=== PATIENT | female | born 1975 | race Caucasian/White ===

== ENCOUNTER → 2017-04-12 | Outpatient (CLI) | payer BC | LOC: FIMAGING 11:49 | PROVIDERS: ATTEND Family Medicine | DX: Z12.31 Encounter for screening mammogram for malignant neoplasm of breast (principal); Z80.3 Family history of malignant neoplasm of breast | CPT/HCPCS: G0202 ==

== ENCOUNTER 2017-05-17 09:38 | Observation (INO) | payer BC, OTHER ==
[2017-05-17] MEDS ORDERED: ONDANSETRON 4 MG/2 ML VIAL IVP ONE (10:05)
[2017-05-17] MEDS ORDERED: NS 1,000 ML IV ONE (10:05)
[2017-05-17] MEDS ORDERED: ONDANSETRON 4 MG/2 ML VIAL ONE (10:05)
--- NOTE | 2017-05-17 10:08 | EDPHY ---
H & P Time Seen by Provider: 05/17/17 09:57 HPI/ROS: CHIEF COMPLAINT: Nausea, abdominal pain, chest pain HISTORY OF PRESENT ILLNESS: 42-year-old female presents to the emergency department feeling very nauseous and having epigastric abdominal pain and chest pressure. The patient states the pain began intermittently on new 's Radha, 5 days ago, and now has continued and now has become constant. She describes it as pressure in her chest that starts in her upper abdomen radiates up to the anterior aspect of her chest. She feels nauseous although no vomiting. She does not feel short of breath. She does state however the pain does feel like it takes her breath away. No diarrhea. No back pain. No family history of coronary artery disease specifically no history of myocardial infarction in 40s or 50s in family members. She has never had pain like this in the past. She does not know what makes it better or worse. She was trying to see if this was related to food and she cannot find a pattern or any triggers to make it worse. REVIEW OF SYSTEMS: Constitutional: No fever, no chills. Eyes: No double or blurry vision. ENT: No sore throat. Respiratory: As above. No cough. Cardiac: chest pain. Gastrointestinal: Epigastric abdominal pain, nausea. No vomiting or diarrhea Genitourinary: No dysuria. Musculoskeletal: No neck or back pain. Skin: No rashes. Neurological: No headache. Past Medical/Surgical History: Negative Social History: and lives in [place] Smoking Status: Never smoked Physical Exam: General Appearance: Alert, moderate distress. Afebrile. 95% on room air. Eyes: Pupils equal and round. Extraocular motions are all intact. ENT: Mouth: Mucous membranes slightly dry. Respiratory: No wheezing, rhonchi, or rales, lungs are clear to auscultation. Unable to reproduce pain with palpation to the anterior aspect of her chest or abdomen. Cardiovascular: Regular rate and rhythm. Gastrointestinal: Abdomen is soft and nontender, no masses, no rebound or guarding, bowel sounds normal. Neurological: Alert and oriented x 3, cranial nerves II through XII grossly intact Skin: Warm and dry, no rashes. Musculoskeletal: Nontender to palpate along the cervical, thoracic or lumbar spine. Neck is supple. Extremities: Full range of motion and no peripheral edema. Psychiatric: Patient is oriented X 3, there is no agitation. Constitutional: Initial Vital Signs Temperature (C) 37.2 C 05/17/17 09:41 Heart Rate 78 05/17/17 09:41 Respiratory Rate 16 05/17/17 09:41 Blood Pressure 127/83 H 05/17/17 09:41 O2 Sat (%) 95 05/17/17 09:41 O2 Delivery Mode Room Air Allergies/Adverse Reactions: Tetracyclines Allergy (Verified 05/17/17 13:41) spinal swelling Home Medications: Medication Instructions Recorded Albuterol [Proventil Inhaler HFA 1 - 2 puffs IH DAILY PRN 05/17/17 (*)] Herbals/Supplements -Info Only 1 ea PO DAILY 05/17/17 Ibuprofen [Motrin (*)] 200 mg PO DAILY PRN 05/17/17 Multivitamins [Multivitamin (*)] 1 each PO DAILY 05/17/17 Medical Decision Making - Diagnostics EKG Interpretation: EKG was reviewed by Dr. Yamileth Justice, see interpretation in trace master. Imaging Results: Imaging Impressions Abdomen Ultrasound 05/17/17 10:49 Impression: There is prominence of the common bile duct, measuring up to 8.5 mm , with no cholelithiasis or choledocholithiasis observed. Correlation with a bilirubin level is suggested, with consideration of an MRCP or an ERCP, if of further clinical concern. Findings were discussed with RAMIREZ NORMAN PA-C at 11:49, on 05/17/2017. Imaging: Discussed imaging studies w/ banquet server on call Radiologist ED Course/Re-evaluation: 42-year-old female presents to the emergency department with epigastric abdominal pain and chest pressure. Symptoms were intermittent starting for 5 days ago and now has become worse and now constant. Laboratory studies are within normal limits with the exception of elevation of her conjugated bili at 0.7 and elevation of her AST at 48. Gallbladder ultrasound reveals large common bile duct measuring 8.9 mm. She had an ultrasound in 2006 the common bile duct measuring 4.8 mm. Radiologist recommends obtaining MRCP or ERCP for possible retained stone. Patient will be admitted to the hospital with ongoing abdominal pain to Dr. Jayson House. MRCP has been ordered. MRCP reveals distended gallbladder with no evidence of choledochal stones. 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 Radiologist, Dr. Ward Davila, recommends MRI both without with contrast of the thoracic spine for further evaluation. This was explained to Dr. Jayson House. Patient has been admitted. Differential Diagnosis: Including but not limited to GERD, peptic ulcer disease, cholecystitis, cholelithiasis, choledocholithiasis, myocardial infarction, pulmonary embolism - Data Points Laboratory Results: Laboratory Results 05/17/17 10:03 05/17/17 10:03 05/17/17 05/17/17 05/17/17 10:03 10:03 10:03 WBC RBC Hgb Hct MCV MCH MCHC RDW Plt Count MPV Neut % (Auto) Lymph % (Auto) [place] % (Auto) Eos % (Auto) Baso % (Auto) Nucleat RBC Rel Count Absolute Neuts (auto) Absolute Lymphs (auto) Absolute Monos (auto) Absolute Eos (auto) Absolute Basos (auto) Absolute Nucleated RBC Immature Gran % Immature Gran # D-Dimer < 0.27 ug/mLFEU ug/mLFEU (0.00-0.50) Sodium 144 mEq/L mEq/L (134-144) Potassium 4.4 mEq/L mEq/L (3.5-5.2) Chloride 106 mEq/L mEq/L (97-110) Carbon Dioxide 25 mEq/l mEq/l (22-31) Anion Gap 13 mEq/L mEq/L (8-16) BUN 21 mg/dL mg/dL (7-23) Creatinine 0.9 mg/dL mg/dL (0.6-1.0) Estimated GFR > 60 Glucose 86 mg/dL mg/dL (70-100) Calcium 10.0 mg/dL mg/dL (8.5-10.4) Total Bilirubin Conjugated Bilirubin Unconjugated Bilirubin AST ALT Alkaline Phosphatase Troponin I < 0.012 ng/mL ng/mL (0.000-0.034) Total Protein Albumin Lipase Beta HCG, Qual NEGATIVE 05/17/17 05/17/17 10:03 10:00 WBC REJ RBC REJ Hgb REJ Hct REJ MCV REJ MCH REJ MCHC REJ RDW REJ Plt Count REJ MPV REJ Neut % (Auto) REJ Lymph % (Auto) REJ [place] % (Auto) REJ Eos % (Auto) REJ Baso % (Auto) REJ Nucleat RBC Rel Count REJ Absolute Neuts (auto) REJ Absolute Lymphs (auto) REJ Absolute Monos (auto) REJ Absolute Eos (auto) REJ Absolute Basos (auto) REJ Absolute Nucleated RBC REJ Immature Gran % REJ Immature Gran # REJ D-Dimer Sodium Potassium Chloride Carbon Dioxide Anion Gap BUN Creatinine Estimated GFR Glucose Calcium Total Bilirubin 1.3 mg/dL mg/dL (0.1-1.4) Conjugated Bilirubin 0.7 mg/dL H mg/dL (0.0-0.5) Unconjugated Bilirubin 0.6 mg/dL mg/dL (0.0-1.1) AST 48 IU/L H IU/L (14-46) ALT 18 IU/L IU/L (9-52) Alkaline Phosphatase 74 IU/L IU/L (38-126) Troponin I Total Protein 8.3 g/dL H g/dL (6.3-8.2) Albumin 4.9 g/dL g/dL (3.5-5.0) Lipase 211 IU/L IU/L (23-300) Beta HCG, Qual Medications Given: Discontinued Medications Sodium Chloride (Ns) 1,000 mls @ 0 mls/hr IV ONCE ONE PRN Reason: Wide Open Stop: 05/17/17 10:06 Last Admin: 05/17/17 10:13 Dose: 1,000 mls Ondansetron HCl (Zofran) 4 mg IVP EDNOW ONE Stop: 05/17/17 10:06 Last Admin: 05/17/17 10:10 Dose: 4 mg Departure - Departure Disposition: [facility] Acute Clinical Impression: Abdominal pain Qualifiers: Abdominal location: epigastric Qualified Code(s): R10.13 - Epigastric pain Chest pain Qualifiers: Chest pain type: unspecified Qualified Code(s): R07.9 - Chest pain, unspecified Condition: Good
--- NOTE | 2017-05-17 10:10 | CPEKG ---
Heart Rate: 46 RR Interval: 1304 QRSD Interval: 74 QT Interval: 424 QTC Interval: 371 QRS [place]: 73 T Wave [place]: 62 EKG Severity - ABNORMAL ECG - EKG Impression: NSR Electronically Signed By: Yamileth Justice 17-May-2017 15:21:19
[2017-05-17 13:27] LABS: PLATELET COUNT 236 10^3/uL (150-400)
--- NOTE | 2017-05-17 14:53 | GHP ---
[f rep st] HISTORY AND PHYSICAL DATE OF ADMISSION: 05/17/2017 CHIEF COMPLAINT: Abdominal pain. HISTORY OF PRESENT ILLNESS: This is a 42-year-old female with no significant past medical history. She has had 5 days of epigastric pain. She describes this as dull aching with some radiation to her back. Last night, it did become sharp. Food makes it worse. Nothing makes it better. She is not h aving any fevers or chills. No diarrhea. No previous history of gallbladder problems. No weight lo ss. She feels a little bit better now in the emergency department. She did have surgery on the abdo evans muscles and she has noticed a little bit of a bulge in the epigastric area which is new, but kory josue has not had any previous actual hernia surgery. REVIEW OF SYSTEMS: A 10-point review of systems was obtained and negative. PAST MEDICAL HISTORY: None. MEDICATIONS: None. SOCIAL HISTORY: No smoking. . FAMILY HISTORY: Reviewed and negative. PHYSICAL EXAMINATION: VITAL SIGNS: Afebrile, blood pressure is 115/75, heart rate is 69, oxygen sat uration 95% on room air. GENERAL: The patient is well-developed, no apparent distress. HEENT: Tamara cteric sclerae. Extraocular movements intact. Moist mucous membranes. NECK: Supple. No thyromega ly. LUNGS: Good effort. Clear to auscultation bilaterally. CARDIOVASCULAR: Regular rate and rhyt hm. No murmurs or gallops. ABDOMEN: Positive bowel sounds. Soft. Some mild epigastric tenderness . Really no right upper quadrant tenderness. No rebound or guarding. EXTREMITIES: No clubbing, cy anosis, or edema. SKIN: Without rash, warm, intact. NEUROLOGIC: Alert and oriented x3. Moving al l 4 extremities equally. PSYCHIATRIC: Normal affect. LABORATORY STUDIES: CBC shows a white count slightly elevated at 9, otherwise normal. D-dimer is ne gative. Conjugated bilirubin is slightly up a 0.7, AST also up at 48, hCG is negative. Abdominal ultrasound shows common bile duct is dilated up to 8.5 mm but no cholelithiasis or choledoc holithiasis. ASSESSMENT: This is a 42-year-old female presenting with abdominal pain and enlarged common bile sklyar t. PLAN: Abdominal pains typical of gallbladder disease. She does have several subtle signs at that th is is probably the cause. Bilirubin is slightly up. Her is also up. Her common bile skylar t is enlarged. She could have some sludge or probably could have passed a stone, although that would be a little bit unusual for 5 days' worth of pain. She is going for MRCP right now. Depending on t hose results, we will see if gastroenterology will get involved and consider ERCP or monitor liver fu nction tests and symptoms. /[id number]/MODL
[2017-05-17] MEDS ORDERED: ONDANSETRON DISINTEGRATING 4 MG TAB PO PRN (15:07)
[2017-05-17] MEDS ORDERED: ONDANSETRON 4 MG/2 ML VIAL IVP PRN (15:07)
[2017-05-17] MEDS: ACETAMINOPHEN 325 MG TAB PO PRN (17:37)
--- NOTE | 2017-05-17 22:27 | SOAPPROG ---
SOECTOR Progress Note Assessment/Plan: Assessment: Plan: 05/17/17 22:27 A/P 1. Abdominal pain- epigastric. 5 day history. Mild non specific elevation in LFTs with dilated CBD on imaging studies. Symptoms atypical for PUD or biliary pain however. Recommend to proceed with EGD/EUS to rule out cause of symptoms. Will proceed with ERCP dependent on findings of EUS however unlikely. R/b/a discussed with patient. NPO. Objective: Vital Signs Temp Pulse Resp BP Pulse Ox 36.7 C 57 L 18 103/65 94 05/17/17 19:48 05/17/17 19:48 05/17/17 19:48 05/17/17 19:48 05/17/17 19:48 Laboratory Results 05/17/17 13:05 05/16/17 05/17/17 05/18/17 05:59 05:59 05:59 Intake Total 1200 Output Total 400 Balance 800 ICD10 Worksheet Patient Problems: Problems Problem Status Onset Abdominal pain Acute Chest pain Acute
--- NOTE | 2017-05-18 04:26 | GCON ---
[f rep st] CONSULTATION DATE OF CONSULTATION: 05/17/2017 CONSULTING PHYSICIAN: Jayson House MD. REASON FOR CONSULTATION: Abdominal pain. CHIEF COMPLAINT: Abdominal pain. HISTORY OF PRESENT ILLNESS: The patient is a 42-year-old female with no significant past medical problems, who presents to [facility] with complaints of abdominal pain. The patient states she was doing well until approximately New year's Radha when she started to experience a burning/sharp pain in her mid epigastric area. This pain radiated to her upper chest at times and even back at times. . The pain appears to have worsened over the last 5 days. She complains that any oral intake makes her symptoms worse with no significant alleviating factors. The pain is present throughout the day and lasts and is almost constant in nature. She does complain of minimal nausea. She denies any dysphagia, odynophagia, change in bowel habits, weight loss, or blood in stool. During her work up she had an US and MRCP which revealed CBD dilation. I am being asked by Dr. House to evaluate the patient in consultation regarding her abdominal pain. PAST MEDICAL HISTORY: Asthma. PAST SURGICAL HISTORY: Abdominoplasty. MEDICATIONS: Albuterol. ALLERGIES: Tetracycline. SOCIAL HISTORY: . No significant tobacco use. Social alcohol. FAMILY HISTORY: Mother has colonic polyps. REVIEW OF SYSTEMS: A 12-point comprehensive review of systems was asked. Pertinent positives and negatives per HPI. PHYSICAL EXAMINATION: VITAL SIGNS: Blood pressure 107/78, pulse 86, respiratory rate 16, temperature 36.8. GENERAL: Awake, alert, oriented x3. No distress. HEENT: Anicteric. Moist mucosa. NECK: No JVD. CARDIOVASCULAR : Regular rhythm. Positive S1, S2. No murmurs or gallops appreciated. LUNGS : Clear to auscultation bilaterally without wheezes, rales, rhonchi. ABDOMEN: Soft, tender in mid epigastric area. No guarding. No rebound. Positive bowel sounds. EXTREMITIES: No clubbing, cyanosis, edema. NEUROLOGIC: Cranial nerves 2 through 12 grossly intact. PSYCH: Normal affect. SKIN: No rash. MUSCULOSKELETAL: No joint effusions. LABORATORY DATA: WBCs 9.56, hemoglobin 14.1, hematocrit 40.3. Sodium 144, potassium 4.4, chloride 106, bicarb 25, BUN 21, creatinine 0.9, AST 48, total bilirubin 1.3, albumin 4.9, lipase 211. IMAGING: Ultrasound on 05/17/2017 prominence of the common bile duct measuring up to 8.5 mm. MRI on 05/17/2017 mild enlargement of the common bile duct without evidence for choledocholithiasis. ASSESSMENT AND PLAN: 1. Abdominal pain-epigastric area. It has been present for approximately 5 days. Blood work fairly unrevealing. Imaging did show a dilated common bile duct with no stones. Etiology? Her symptoms do seem atypical for a biliary cause, as well as even peptic ulcer disease? Due to her dilated common bile duct and mild changes in her liver function tests, would recommend to proceed with both EGD/EUS to delineate, as well as rule out other causes of her abdominal pain. If choledocholithiasis found, will proceed with ERCP. The risks, benefits, and alternatives of the procedure were discussed in great detail with the patient. The risk of infection, bleeding, perforation, and sedation were discussed. All questions answered and informed consent was obtained. /[id number]/MODL MTDD
[2017-05-18 05:01] LABS: PLATELET COUNT 214 10^3/uL (150-400)
[2017-05-18] MEDS: ACETAMINOPHEN 325 MG TAB PO PRN (06:31)
[2017-05-18] MEDS ORDERED: HYDROmorphONE/DILAUDID 1 MG/ML INJ IVP PRN (06:45)
[2017-05-18] MEDS ORDERED: NS 1,000 ML IV SCH (07:00)
[2017-05-18] MEDS ORDERED: LR 1,000 ML IV ONE (10:55)
--- NOTE | 2017-05-18 13:14 | PDANEPAE ---
ANE Past Medical History - Pulmonary History Hx Oxygen in Use at Home: No Hx Sleep Apnea: No Sleep Apnea Screening Result - Last Documented: Negative - Endocrine History Hx Diabetes: No - Chronic Pain History Chronic Pain: No ANE Review of Systems Review of Systems: ANE Patient History - Allergies Allergies/Adverse Reactions: Tetracyclines Allergy (Verified 05/17/17 13:41) spinal swelling - Home Medications Home Medications: Albuterol [Proventil Inhaler HFA (*)] 1 - 2 puffs IH DAILY PRN 05/17/17 [Last Taken Unknown] Herbals/Supplements -Info Only 1 ea PO DAILY 05/17/17 [Last Taken Unknown] Ibuprofen [Motrin (*)] 200 mg PO DAILY PRN 05/17/17 [Last Taken Unknown] Multivitamins [Multivitamin (*)] 1 each PO DAILY 05/17/17 [Last Taken Unknown] - NPO status NPO Since - Liquids (Date): 05/18/17 NPO Since - Liquids (Time): 00:00 NPO Since - Solids (Date): 05/18/17 NPO Since - Solids (Time): 00:00 - Smoking Hx Smoking Status: Never smoked ANE Labs/Vital Signs - Labs Result Diagrams: 05/18/17 04:50 05/18/17 04:50 - Vital Signs Blood Pressure: 129/79 Heart Rate: 68 Respiratory Rate: 15 O2 Sat (%): 95 Height: 162.56 cm Weight: 61.235 kg ANE Physical Exam - Airway Mallampati Score: Class 1 - ASA Status ASA Status: II ANE Anesthesia Plan Total IV Anesthesia: Yes
[2017-05-18] MEDS ORDERED: PROPOFOL/EMULSION 500 MG/50 ML BOTTLE IV ONE (13:16)
[2017-05-18] MEDS ORDERED: MIDAZOLAM 2 MG/2 ML VIAL ONE (13:16)
[2017-05-18] MEDS ORDERED: fentaNYL 100 MCG/2 ML INJ ONE (13:33)
[2017-05-18] MEDS ORDERED: LR 500 ML IV PRN (13:58)
[2017-05-18] MEDS ORDERED: PROMETHAZINE HCL 25 MG/ML INJ IVP PRN (13:58)
[2017-05-18] MEDS ORDERED: NALOXONE HCL 0.4 MG/ML INJ IVP PRN (13:58)
[2017-05-18] MEDS ORDERED: fentaNYL 100 MCG/2 ML INJ IVP PRN (13:58)
--- NOTE | 2017-05-18 13:59 | POSTANESTH ---
Post Anesthetic Evaluation Cardiovascular Status: Normal, Stable Respiratory Status: Normal, Stable Level of Consciousness/Mental Status: Can Participate in Eval Pain Control: Adequate, Prn Tx Ordered Nausea/Vomiting Control: Adequate, Prn Tx Ordered Complications Possibly Related to Anesthesia: None Noted
--- NOTE | 2017-05-18 15:32 | GIREPORT ---
[facility] Surgical Services - Endoscopy Department Patient Name: Doris Dela Cruz Procedure Date: 05/18/2017 12:54 PM Patient Type: Inpatient Attending MD/ ER Physician: Leon Roberts MD Procedure: Upper EUS Indications: Common bile duct dilation (acquired) seen on MRI, Epigastric abdominal pain Patient Profile: 42 year old female presents for evaluation of epigastric abdominal pain as well as CBD dilation. Providers: Leon Roberts MD Medicines: Monitored Anesthesia Care Complications: No immediate complications. Estimated blood loss: Minimal. Description of Procedure: After obtaining informed consent, the endoscope was passed under direct vision. Throughout the procedure, the patient's blood pressure, pulse, and oxygen saturations were monitored continuously. The Endosonoscope was introduced through the mouth, and advanced to the second part of duoden um. The Endoscope was introduced through the mouth, and advanced to the sec ond part of duodenum. The upper EUS was accomplished without difficulty. Th e patient tolerated the procedure well. Findings: Endoscopic Finding : The examined esophagus was normal. A large hiatal hernia was present. Patchy mildly erythematous mucosa was found in the gastric body and in the stomach. Biopsies were taken with a cold forceps for histology. A few small sessile polyps were found on the greater curvature of the stomach. Biopsies were taken with a cold forceps for histology. The examined duodenum was normal except for a large diverticulum in the 2nd portion. Biopsies for histology were taken with a cold forceps for evaluation of celiac disease. Endosonographic Finding : Pancreatic parenchymal abnormalities were noted in the entire pancreas. These consisted of hyperechoic foci. The pancreatic duct had a prominently branched endosonographic appearan ce and had hyperechoic guzman in the entire pancreas. There was dilation in the common bile duct which measured up to 8 mm. There was no sign of significant endosonographic abnormality in the gallbladder. There was no sign of significant endosonographic abnormality in the visualized portion of the liver. No lymphadenopathy seen. Estimated Blood Loss: Estimated blood loss was minimal. Post Op Diagnosis: - Normal esophagus. - Large hiatal hernia. - Erythematous mucosa in the gastric body and stomach. Biopsied. - A few gastric polyps. Biopsied. - Normal examined duodenum except for a duodenal diverticulum. Biopsied . - Pancreatic parenchymal abnormalities consisting of hyperechoic foci w ere noted in the entire pancreas. - The pancreatic duct had a prominently branched endosonographic appear ance and had hyperechoic guzman in the entire pancreas. - There was dilation in the common bile duct which measured up to 8 mm. - There was no sign of significant pathology in the gallbladder. - There was no evidence of significant pathology in the visualized port ion of the liver. - Etiology? Suspect CBD dilation may be secondary to diverticulum. No m ass or stone disease seen. Suspect pain is functional versus GERD. Recommen d trial of PPI and antispasmodic (hyoscyamine 0.125 mg Q6 PRN pain) Recommendation: - Return patient to [facility] for [facility] care. - Await path results. - Return to GI office in 6 weeks. - Thank you for allowing me to participate in the care of your patient. Attending Participation: I personally performed the entire procedure. Leon Roberts MD Leon Roberts MD 05/18/2017 3:32:14 PM This report has been signed electronicallyLeon Roberts MD Number of Addenda: 0 Note Initiated On: 05/18/2017 12:54 PM [email or web address]
[2017-05-18] MEDS ORDERED: HYOSCYAMINE SULFATE 0.125 MG TAB PO PRN (16:17)
--- NOTE | 2017-05-18 16:23 | HOSPPROG ---
Hospitalist Progress Note Assessment/Plan: New patient encounter 42 yo female admitted with abd pain and imaging c/w CBC dilitation GI following Had endoscopy today c/w Gastric polyps, Duodenal Diverticulum, CBC dilitation with no stones or mass, Hiatal hernia, Pancreatic Hyperechoic foci. Biopsies obtained, will need to be followed Etiology of pain is unclear, possibly functional vs GERD Etiology of CBD enlargement may be due to diverticum Will advance diet slowly trial of PPI trial of Levsin #Abd pain #GERD #Hiatal Hernia #Dilated CBD #Transaminitis: resolved #Pancreatic Hyperechoic foci Subjective: no cp or sob. still with intermittent abd pain. some nausea. Objective: Vital Signs Temp Pulse Resp BP Pulse Ox 36.5 C 58 L 16 110/68 95 05/18/17 14:35 05/18/17 14:35 05/18/17 14:35 05/18/17 14:35 05/18/17 14:35 Laboratory Results 05/18/17 04:50 05/18/17 04:50 05/17/17 05/18/17 05/19/17 05:59 05:59 05:59 Intake Total 1700 220 Output Total 1000 Balance 700 220 - Physical Exam Constitutional: no apparent distress Eyes: PERRL Ears, Nose, Mouth, Throat: moist mucous membranes, hearing normal Cardiovascular: regular rate and rhythym, no murmur, rub, or gallop Respiratory: no respiratory distress, no rales or rhonchi Gastrointestinal: normoactive bowel sounds, soft, non-tender abdomen Genitourinary: no bladder fullness Skin: warm Musculoskeletal: full muscle strength Neurologic: AAOx3 Psychiatric: interacting appropriately, not anxious, not encephalopathic ICD10 Worksheet Patient Problems: Problems Problem Status Onset Abdominal pain Acute Chest pain Acute
--- NOTE | 2017-05-18 16:27 | SOAPPROG ---
SARAH Progress Note Assessment/Plan: Assessment: Plan: 05/17/17 22:27 A/P 1. Abdominal pain- epigastric. 5 day history. Mild non specific elevation in LFTs with dilated CBD on imaging studies. Symptoms atypical for PUD or biliary pain however. Recommend to proceed with EGD/EUS to rule out cause of symptoms. Will proceed with ERCP dependent on findings of EUS however unlikely. R/b/a discussed with patient. NPO. 05/18/17 16:26 GI note S/p EGD/EUS. NO cause of symptoms seen. Recommend trial of PPI and antispasmodic. Ok to advance diet. GI f/u in 2-[address] Jara is taking over the service at 5pm. Please call him if needed. GI will sign off. Thank you for the consultation! Objective: Vital Signs Temp Pulse Resp BP Pulse Ox 36.5 C 58 L 16 110/68 95 05/18/17 14:35 05/18/17 14:35 05/18/17 14:35 05/18/17 14:35 05/18/17 14:35 Laboratory Results 05/18/17 04:50 05/18/17 04:50 05/17/17 05/18/17 05/19/17 05:59 05:59 05:59 Intake Total 1700 220 Output Total 1000 Balance 700 220 ICD10 Worksheet Patient Problems: Problems Problem Status Onset Abdominal pain Acute Chest pain Acute
[2017-05-18] MEDS: PANTOPRAZOLE SODIUM 40 MG TAB PO SCH (16:41)
[2017-05-18] MEDS ORDERED: HYDROmorphone HCL/NS/PF 0.4 MG/2 ML SYR IVP PRN (17:30)
[2017-05-19] MEDS: ACETAMINOPHEN 325 MG TAB PO PRN (05:52)
[2017-05-19 07:46] VITALS: RESP 16
[2017-05-19] MEDS: PANTOPRAZOLE SODIUM 40 MG TAB PO SCH (09:47)
[2017-05-19 11:32] VITALS: BP 132/83; PULSE 66; TEMP 98.3; O2SAT 94
--- NOTE | 2017-05-19 13:39 | PDDCSUM ---
Discharge Summary Discharge Summary: 42 yo female admitted with abd pain and imaging c/w CBC dilitation GI consulted Had endoscopy today c/w Gastric polyps, Duodenal Diverticulum, CBC dilitation with no stones or mass, Hiatal hernia, Pancreatic Hyperechoic foci. Biopsies obtained, will need to be followed Etiology of pain is unclear, possibly functional vs GERD Etiology of CBD enlargement may be due to diverticum tolerating a regular diet trial of PPI trial of Levsin f/u with GI is 2 weeks DDX: #Abd pain #GERD #Hiatal Hernia #Dilated CBD #Transaminitis: resolved #Pancreatic Hyperechoic foci Exam: NAD AAOX3 RRR CTA B S/NT/ND NO LE EDEMA MEDS: SEE MED REC F/U: PER ABOVE TOTAL TIME SPENT ON D/C IS 35 MINS
--- NOTE | 2017-05-19 14:35 | ASDISCHSUM ---
Discharge Information Plan Status:Home with No Needs Medically Cleared to Leave: Discharge Date:05/19/2017 02:21 PM CM D/C Disposition: ADT D/C Disposition:Home, Routine, Self-Care Projected Discharge Date:05/19/2017 02:21 PM Transportation at D/C: Discharge Delay Reason: Follow-Up Date:05/19/2017 02:21 PM Discharge Slot: Final Diagnosis: Placement Information Patient Contact Information Contact Name:PAUL Relationship: Address:[address] [place] [address] [place] Alternate Phone: [facility]/Zip Code:[place] [address] Email: Financial Information Financial Class:HMO and PPO Plans Primary Plan Desc: OUT OF STATE PPO Primary Plan Number:[id number] Secondary Plan Desc:[facility] Secondary Plan Number:[id number] Assessment Information Case Management Discharge Plan Note Case Management Discharge Discharge Order Complete? Answers: Yes Patient to Obtain Answers: via Family Medications Transportation Arranged Answers: Family/Friends Discharge Comments Notes: PtJessika escudero/willian'ed independently today. Lives w/ . Date Signed: 05/19/2017 02:34 PM Electronically Signed By:Teodora Bell LCSW Intervention Information
== END 2017-05-19 14:21 | disposition home or self-care (01) ==
LOC: F3N 15:02
PROVIDERS: ADMIT Internal Medicine; ATTEND Family Medicine
PROC: 0DB68ZX Excision of Stomach, Via Natural or Artificial Opening Endoscopic, Diagnostic (ICD-10-PCS; principal; 2017-05-17)
PROC: 0DJ08ZZ Inspection of Upper Intestinal Tract, Via Natural or Artificial Opening Endoscopic (ICD-10-PCS; principal; 2017-05-17)
PROC: 0DB98ZX Excision of Duodenum, Via Natural or Artificial Opening Endoscopic, Diagnostic (ICD-10-PCS; principal; 2017-05-17)
DX: R10.13 Epigastric pain (principal); K83.8 Other specified diseases of biliary tract; K31.7 Polyp of stomach and duodenum; K57.10 Diverticulosis of small intestine without perforation or abscess without bleeding; R74.0 Nonspecific elevation of levels of transaminase and lactic acid dehydrogenase [LDH]; K86.89 Other specified diseases of pancreas; K44.9 Diaphragmatic hernia without obstruction or gangrene; K21.9 Gastro-esophageal reflux disease without esophagitis; M71.38 Other bursal cyst, other site; J45.909 Unspecified asthma, uncomplicated
CPT/HCPCS: 43237; 43239; 74181; 76705; 93005; 96374; 99285; G0378; J1170; J2250; J2405; J2704; J3010

== ENCOUNTER → 2018-07-11 | Outpatient (CLI) | payer OTHER | LOC: FIMAGING 11:40 | PROVIDERS: ATTEND Family Medicine | DX: Z12.31 Encounter for screening mammogram for malignant neoplasm of breast (principal); N63.20 Unspecified lump in the left breast, unspecified quadrant; Z80.3 Family history of malignant neoplasm of breast ==

== ENCOUNTER → 2018-07-31 | Outpatient (CLI) | payer OTHER | LOC: FIMAGING 08:57 | PROVIDERS: ATTEND Family Medicine | DX: N63.21 Unspecified lump in the left breast, upper outer quadrant (principal) ==